=== PATIENT | female | born 1970 | race Caucasian/White ===

== ENCOUNTER 2020-09-13 18:44 | Emergency (ER) | payer OTHER ==
[~2020-09-13 18:44] MED LIST: FERROUS SULFAT325 M1 PO; FIORICET1 EACH PO; MOTRIN600 MG PO; NITROFURANTOIN100 M1 PO; ONDANSETRON ODT4 MG PO/SL; PHENERGAN25 M1 PO; ULTRAM50 MG PO; XARELTO10 MG PO; ZOFRAN8 MG PO
[2020-09-13 21:21] LABS: BILIRUBIN NEGATIVE (NEGATIVE); BLOOD TRACE-INTACT Ery/uL (NEGATIVE); CLARITY CLEAR (CLEAR); COLOR YELLOW (YELLOW); GLUCOSE (U) NORMAL (NORMAL); LEUKOCYTES 2+ Leu/uL (NEGATIVE); NITRITE NEGATIVE (NEGATIVE); PROTEIN NEGATIVE (NEGATIVE); SPECIFIC GRAVITY <=1.005 (1.001-1.030); UROBILINOGEN 0.2 mg/dL (0.2-1.0); pH 6.5 (5.0-9.0)
[2020-09-13 21:27] LABS: BACTERIA 1+
[2020-09-13 21:28] LABS: TRANSITIONAL EPITHELIAL CELLS RARE
== END 2020-09-13 21:20 | disposition left against medical advice (07) ==
LOC: FER 18:44
PROVIDERS: Emergency Medicine
DX: Z53.8 Procedure and treatment not carried out for other reasons (principal)
CPT/HCPCS: 81001

== ENCOUNTER 2020-11-03 21:28 | Inpatient (IN) | payer OTHER ==
[~2020-11-03] VITALS: Ht 160 cm; Wt 66.4 kg
[2020-11-03 22:58] LABS: BILIRUBIN NEGATIVE (NEGATIVE); BLOOD 1+ Ery/uL (NEGATIVE); CLARITY CLEAR (CLEAR); COLOR YELLOW (YELLOW); GLUCOSE (U) NORMAL (NORMAL); LEUKOCYTES 1+ Leu/uL (NEGATIVE); NITRITE NEGATIVE (NEGATIVE); PROTEIN NEGATIVE (NEGATIVE); UROBILINOGEN 0.2 mg/dL (0.2-1.0)
[2020-11-03 22:58] LABS: BASOPHIL 0.4 % (0-2); EOSINOPHIL 2.5 % (0-5); HCT 36.9 % (37.0-47.0); HGB 12.1 g/dl (12.5-16.0); LYMPHOCYTE 16.1 % (15-48); MCH 31.8 pg (25.0-31.0); MCHC 32.8 g/dL (32.0-36.0); MCV 96.9 fL (78.0-100.0); MONOCYTE 7.4 % (0-12); MPV 10.4 fL (6.0-9.5); NEUTROPHIL 73.1 % (41-80); NRBC 0; PLT 313 K/uL (150-400); RBC 3.81 M/uL (4.20-5.40); RDW 16.3 % (11.5-14.0); WBC 17.5 K/uL (4.0-10.5)
[2020-11-03 23:06] LABS: BACTERIA TRACE; URINARY RBC RARE; URINARY WBC RARE
[2020-11-03 23:22] LABS: ALBUMIN 3.3 g/dL (3.4-5.0); BILIRUBIN - TOTAL 0.2 mg/dL (0.2-1.0); BUN/CREAT RATIO (CALC) 8.5 RATIO; CREATININE 0.47 mg/dL (0.51-0.95); GLOBULIN (CALCULATION) 4.1 g/dL; POTASSIUM 4.5 mmol/L (3.5-5.1); TOTAL PROTEIN 7.4 g/dL (6.4-8.2)
[2020-11-03 23:29] LABS: PRO-BNP 286 pg/mL (<125)
[2020-11-04] MEDS ORDERED: SUBOXONE 8 MG-1 EACH PO (04:46)
[2020-11-04] MEDS ORDERED: ZYRTEC10 MG PO (04:47)
[2020-11-04] MEDS ORDERED: COMBIVENT RESPIM4 GM INH (14:53)
[2020-11-04] MEDS ORDERED: CEFDINIR300 MG PO (14:53)
[2020-11-04] MEDS ORDERED: PREDNISONE 20MG20 MG PO (14:53)
[2020-11-04] MEDS ORDERED: ADVAIR HFA 230-28 GM INH (14:53)
[2020-11-04] MEDS ORDERED: AZITHROMYCIN250 MG PO (14:53)
[2020-11-05 05:21] LABS: BASOPHIL 0.1 % (0-2); EOSINOPHIL 0 % (0-5); HCT 34.5 % (37.0-47.0); HGB 11.1 g/dl (12.5-16.0); LYMPHOCYTE 8.5 % (15-48); MCH 30.8 pg (25.0-31.0); MCHC 32.2 g/dL (32.0-36.0); MCV 95.8 fL (78.0-100.0); MPV 10.9 fL (6.0-9.5); NEUTROPHIL 85.9 % (41-80); NRBC 0; PLT 277 K/uL (150-400); RDW 16.2 % (11.5-14.0); WBC 16.5 K/uL (4.0-10.5)
[2020-11-05 05:32] LABS: ALBUMIN 2.7 g/dL (3.4-5.0); BILIRUBIN - TOTAL 0.1 mg/dL (0.2-1.0); BUN/CREAT RATIO (CALC) 17.1 RATIO; CREATININE 0.41 mg/dL (0.51-0.95); GLOBULIN (CALCULATION) 4.2 g/dL; TOTAL PROTEIN 6.9 g/dL (6.4-8.2)
== END 2020-11-05 09:34 | disposition home or self-care (01) | DRG 193 ==
LOC: FER 21:28 → FMS 11-04 04:23
PROVIDERS: Emergency Medicine; Nurse Practitioner; ADMIT Internal Medicine
DX: J18.9 Pneumonia, unspecified organism (principal); J96.01 Acute respiratory failure with hypoxia; J44.0 Chronic obstructive pulmonary disease with (acute) lower respiratory infection; F17.200 Nicotine dependence, unspecified, uncomplicated; M19.90 Unspecified osteoarthritis, unspecified site; Z20.822 Contact with and (suspected) exposure to COVID-19; Z96.652 Presence of left artificial knee joint; G89.4 Chronic pain syndrome; E01.0 Iodine-deficiency related diffuse (endemic) goiter; Z98.51 Tubal ligation status; Z88.5 Allergy status to narcotic agent; Z88.8 Allergy status to other drugs, medicaments and biological substances; Z79.891 Long term (current) use of opiate analgesic; Z98.890 Other specified postprocedural states
CPT/HCPCS: 36415; 71045; 71275; 80053; 81001; 83605; 83880; 84484; 85025; 87040; 93005; 94010; 94640; 94664; 94667; 94668; 94760; G0378; J0456; J0696; J1885; J2930; J7030; J7050; Q9967; U0002

== ENCOUNTER 2021-09-19 20:45 | Emergency (ER) | payer OTHER ==
[~2021-09-19 20:45] MED LIST changes: +ADVAIR HFA 230-28 GM INH; +AZITHROMYCIN250 MG PO; +CEFDINIR300 MG PO; +COMBIVENT RESPIM4 GM INH; +LEVOTHYROXINE50 MCG PO; +PREDNISONE 20MG20 MG PO; +SUBOXONE 8 MG-1 EACH PO; +ZYRTEC10 MG PO
[2021-09-19 21:59] LABS: BASOPHIL 0.5 % (0-2); EOSINOPHIL 4.4 % (0-5); HCT 37.6 % (37.0-47.0); HGB 12.7 g/dl (12.5-16.0); LYMPHOCYTE 36.1 % (15-48); MCH 33.9 pg (25.0-31.0); MCHC 33.8 g/dL (32.0-36.0); MCV 100.3 fL (78.0-100.0); MONOCYTE 8.8 % (0-12); NEUTROPHIL 49.8 % (41-80); NRBC 0; PLT 263 K/uL (150-400); RBC 3.75 M/uL (4.20-5.40); RDW 15.3 % (11.5-14.0); WBC 11.9 K/uL (4.0-10.5)
[2021-09-19 22:11] LABS: ALBUMIN 3.5 g/dL (3.4-5.0); BILIRUBIN - TOTAL 0.3 mg/dL (0.2-1.0); BUN/CREAT RATIO (CALC) 8.6 RATIO; CREATININE 0.58 mg/dL (0.51-0.95); GLOBULIN (CALCULATION) 4.1 g/dL; POTASSIUM 3.9 mmol/L (3.5-5.1); TOTAL PROTEIN 7.6 g/dL (6.4-8.2)
[2021-09-19 22:58] LABS: BILIRUBIN NEGATIVE (NEGATIVE); BLOOD NEGATIVE Ery/uL (NEGATIVE); CLARITY CLEAR (CLEAR); COLOR YELLOW (YELLOW); GLUCOSE (U) NORMAL (NORMAL); LEUKOCYTES TRACE Leu/uL (NEGATIVE); NITRITE NEGATIVE (NEGATIVE); PROTEIN NEGATIVE (NEGATIVE); SPECIFIC GRAVITY <=1.005 (1.001-1.030)
[2021-09-19 23:04] LABS: SQUAMOUS EPITHELIAL CELLS RARE
[2021-09-19] MEDS ORDERED: AMOX TR-K CLV1 EAC4 PO (23:14)
[2021-09-19] MEDS ORDERED: OMEPRAZOLE40 MG PO (23:14)
[2021-09-19] MEDS ORDERED: AZITHROMYCIN250 MG PO (23:14)
== END 2021-09-20 00:20 | disposition home or self-care (01) ==
LOC: FER 20:45
PROVIDERS: Internal Medicine
DX: R10.13 Epigastric pain (principal); J18.0 Bronchopneumonia, unspecified organism; F17.210 Nicotine dependence, cigarettes, uncomplicated; Z88.5 Allergy status to narcotic agent
CPT/HCPCS: 36415; 71250; 80053; 81001; 83690; 84145; 84484; 85025; 93005; J0696; J1170; J2405; J7040